=== PATIENT | male | born 1950 | race Caucasian/White ===

== ENCOUNTER 2018-01-06 17:35 | Inpatient (IN) | payer MEDICARE ==
[~2018-01-06] VITALS: Ht 172.7 cm; Wt 144.2 kg
[2018-01-06] VITALS (12 sets, daily range): BP systolic 52–115; BP diastolic 29–70
[~2018-01-06 17:35] MED LIST: ALLOPURINOL 30300 M2 PO; ASPIR 8181 MG PO; IMDUR 30 MG TAB30 M1 PO; LIPITOR 20 MG T20 M1 PO; METFORMIN HCL500 MG PO; NEXIUM40 MG PO; NITROGLYCERIN0.4 MG SUBLING; VASOTEC10 MG PO; ZIAC 2.5-6.251 EACH PO
[2018-01-06] MEDS ORDERED: PLAVIX 75 MG TA75 M1 PO (18:00)
[2018-01-06] MEDS ORDERED: OSTEO BI-FLEX1 EAC1 PO (18:00)
[2018-01-06] MEDS ORDERED: SUPER B COMPLE150 MG PO (18:00)
[2018-01-06 18:15] LABS: HEMATOCRIT 47.4 % (42.0-52.0); HEMOGLOBIN 15.8 gm/dL (14.0-18.0); MCH 30.8 pg (26.0-34.0); MCHC 33.3 g/dL (28.0-37.0); MCV 92.5 fL (80.0-100.0); MPV 11.5 fl. (7.2-11.1); NUCLEATED RBCS 0 /100WBC; PLATELET COUNT* 279 thou/uL (150-400); RBC 5.12 mil/uL (4.50-6.00); RDW-CV 14.2 % (10.5-14.5); WBC 12.8 thou/uL (4.0-11.0)
[2018-01-06 18:24] LABS: APTT 22.3 Seconds (25.0-31.3); INR 1.2
[2018-01-06 18:25] LABS: BUN 54 mg/dL (7-18); CALCIUM 8.2 mg/dL (8.5-10.1); CHLORIDE 83 mmol/L (98-107); CO2 22 mmol/L (21-32); CREATININE 3.4 mg/dL (0.6-1.3); POTASSIUM 5.1 mmol/L (3.5-5.1)
[2018-01-06 18:34] LABS: ALBUMIN 3.2 g/dL (3.4-5.0); ALKALINE PHOSPHATASE 88 U/L (46-116); NT-PRO BRAIN NAT PEPTIDE 2041 pg/mL (<300); SGOT 41 U/L (15-37); SGPT 75 U/L (30-65); TOTAL BILIRUBIN 1.4 mg/dL (<0.1-1.0); TOTAL PROTEIN 6.9 g/dL (6.4-8.2); TROPONIN-I LEVEL <0.06 ng/mL (<0.06)
[2018-01-06 18:37] LABS: ANION GAP 13 mmol/L (7-16)
[2018-01-06 18:38] LABS: GLUCOSE 834 mg/dL (70-99); SODIUM 118 mmol/L (136-145)
[2018-01-06 18:50] LABS: ABSOLUTE MONOCYTES 0.6 thou/uL (0.0-1.2); ABSOLUTE NEUTROPHILS 11.1 thou/uL (1.6-8.1)
[2018-01-06 18:51] LABS: PLATELET ESTIMATE ADEQUATE
[2018-01-06 18:52] LABS: CLUMPED PLTS RARE; LARGE PLATELETS OCCASIONAL
--- NOTE | 2018-01-06 20:38 | NUR ---
PT IS 67 Y/O MALE ADMITTED TO ICU BED 2 FOR LACTIC ACIDOSIS, HYPOTENSION, AND HYPERGLYCEMIA. PT IS AXOX4. ROOM AIR. PT DENIES PAIN. MAP STABLE UPON ARRIVAL TO ICU. ADMISSION HX OBTAINED FROM PT WELL PT'S DAUGHTER AND SON. PT STATES HE HAS NOT BEEN FEELING WELL FOR THE PAST 2 WEEKS. PT C/O NAUSEA, VOMITING, AND DIARRHEA OVER THE LAST TWO WEEKS. PT ORIENTED TO ROOM. FLUIDS (BOTH NS AND D5NS) INFUSING PER CONTINUOUS INSULIN PROTOCOL. INSULIN GTT STARTED AFTER ARRIVAL TO ICU. GOALS THIS SHIFT: HYDRATION W/FLUIDS, DECREASE BLOOD GLUCOSE LEVELS, MONITOR LABS/URINE OUTPUT, AND MAINTAIN HEMODYNAMIC STABILITY (KEEP MAP >65). PT UPDATED ON PLAN OF CARE T/OUT NIGHT.
[2018-01-06 21:11] LABS: BE -7.4 mmol/L (-2 to +3); HCO3 16.1 mmol/L (22.0-26.0); PCO2 28.1 mmHg (35.0-45.0); PO2 71.7 mmHg (75.0-100.0); pH 7.375 (7.340-7.450)
--- NOTE | 2018-01-06 22:47 | NUR ---
CARDIOLOGY CONSULT CALLED IN. CONSULT WILL BE PAGED OVER AT 4030 TOMORROW.
--- NOTE | 2018-01-06 23:30 | NUR ---
PT BOLUSED W/SODIUM CHLORIDE AT THIS TIME D/T HYPOTENSION. AWAITING CENTRAL LINE PLACEMENT.
--- NOTE | 2018-01-06 23:30 | NUR ---
PT HYPOTENSIVE W/SBP IN THE 50'S-60'S. CENTRAL LINE PLACED. LEVO GTT ORDERED TO KEEP MAP >65.
--- NOTE | 2018-01-06 23:49 | NUR ---
UPDATED PT'S DAUGHTER ON PT STATUS.
--- NOTE | 2018-01-06 23:59 | NUR ---
DR. NOLAN HERE FOR CENTRAL LINE PLACEMENT. TIME OUT CALLED. PT NOW HAS CENTRAL LINE TO LEFT SUBCLAVIAN.
[2018-01-07] VITALS (37 sets, daily range): BP systolic 78–182; BP diastolic 42–148
--- NOTE | 2018-01-07 01:00 | NUR ---
PT HAS RESPONDED TO NS BOLUS. MAP HAS STAYED NEAR OR ABOVE 65. QUAD STRENGTH LEVO GTT AVAILABLE IF NEEDED.
--- NOTE | 2018-01-07 02:05 | NUR ---
PT W/MULTIPLE MAPS IN THE MID 50'S TO UPPER 50'S. ANTONINO GTT STARTED AT 4 MCG/MIN. PT INFORMED OF PLAN OF CARE.
[2018-01-07 03:18] LABS: URINE BLOOD 3+ (Negative); URINE CLARITY CLEAR; URINE COLOR YELLOW; URINE GLUCOSE-RANDOM NEGATIVE (Negative); URINE KETONES NEGATIVE (Negative); URINE LEUKOCYTES-REFLEX 1+ (Negative); URINE NITRITE-REFLEX NEGATIVE (Negative); URINE PROTEIN 2+ (Negative); URINE SPECIFIC GRAVITY 1.025 (1.005-1.030); URINE UROBILINOGEN 0.2 E.U./dl (0.2-1.0)
[2018-01-07 03:22] LABS: URINE BILIRUBIN 1+ (Negative)
[2018-01-07 03:23] LABS: ICTOTEST (BILI CONFIRMATORY) Negative (Negative)
[2018-01-07 03:24] LABS: HYALINE CASTS 4-10 Moderate /LPF (None Seen); SQUAMOUS 0-3 Few /LPF (0-3)
[2018-01-07 03:25] LABS: COARSE GRANULAR CASTS 0-3 Few /LPF (None Seen)
[2018-01-07 03:26] LABS: URINE WBC-REFLEX >25 Many /HPF (0-5)
[2018-01-07 03:27] LABS: CRYSTALS None Seen /LPF (None Seen); WBC CLUMPS Few (None Seen)
--- NOTE | 2018-01-07 04:00 | NUR ---
AFTER 0400 ASSESSMENT, PT STATES HE WISHES TO SLEEP. REQUEST GRANTED. REMAINS ON LEVO AND INSULIN (REGULAR) GTTS. BLOOD GLUCOSE TRENDING DOWNWARD NICELY.
--- NOTE | 2018-01-07 05:42 | NUR ---
UPDATED DR. WILSON ON PT STATUS. NEW ORDERS RCV'D.
--- NOTE | 2018-01-07 06:15 | NUR ---
OUTCOME SUMMARY: PT PROGRESSING TOWARDS GOALS. TITRATED OFF INSULIN GTT. NOW ON MODERATE DOSE SLIDING SCALE INSULIN. ADVANCED DIET TO ADA FROM CL. LEVO GTT CURRENTLY AT 2 MCG/MIN. ADEQUATE URINE OUTPUT. STARTED ON ROCEPHIN FOR UTI. C+S PENDING. BUN/CR TRENDING DOWNWARD. NA TRENDING UP AND NORMALIZING. K AT 3.1 AND TO BE REPLACED. CARDIOLOGY CONSULT THIS AM. OVERALL PROGNOSIS: FAIR.
[2018-01-07 08:23] LABS: CHOLESTEROL 111 mg/dL (<200); HDL CHOLESTEROL 25 mg/dL (>40); LDL CHOLESTEROL 35 mg/dL (<100); TC:HDL 4.4 Ratio (Not establshd); TRIGLYCERIDE 259 mg/dL (<150); VLDL 52 mg/dL (<40)
[2018-01-07 08:25] LABS: SERUM ASSESSMENT Clear
--- NOTE | 2018-01-07 08:28 | NUR ---
ASSUMED CARE OF PATIENT ALERT DENIES CP OR SOA. UNDERSTANDS HE WILL NEED LIFESTYLE CHANGE. PLAN TO BE OUT OF BED AND UP IM ROOM.WILL MONITOR BLOOD GLUCOSE IN ATTEMPT TO TRANSFER TO FLOOR. PT TAKING PO WELL.
--- NOTE | 2018-01-07 10:57 | NUR ---
Nutrition: consult received for DM diet education. Pt is still on ICU floor for rehydration. Pt has low BP, decreased renal FXN. New DM, will go home on insulin. BG was >600, now 190. TG 259, alb 2.6, BUN 44, cr 2.4. Wt: 303#. CHO controlled diet. Eating 100%. Getting echo at 10:[address] will educate when pt off of ICU floor. Follow up 01/09/18.
--- NOTE | 2018-01-07 13:37 | NUR ---
SPOKE WITH PT.AND HIS DAUGHGTERDANILO. HE WAS ALERT AND ORIENTED. HE SAID HIS SON,DARLIN,LIVES WITH HIM. DARLIN WILL NORMALLY DO THE COOKING. HE SAID THEY SELDOM GO OUT TO EAT. HE IS INDEPENDENT AT HOME. NO DME AT HOME. HE DOES HAVE A CPAP BUT HASN'T USED IT FOR ABOUT 20 YRS. HE'S NOT EVEN SURE IT WORKS.HE CAN'T REMEMBER NAME OF COMPANY IT CAME FROM. HE SAID THE MASK NEVER WORKED RIGHT. TOLD HIM IF WANTED HIM TO HAVE A NEW CPAP WE COULD SEE ABOUT GETTING HIM A NEW ONE. HE DOES HAVE A GLUCOMETER. HE GOT IT A COUPLE MONTHS AGO. HE HASN'T USED IT YET. HE SAID THE DRJeannetteAT THAT TIME TOLD HIM HE MIGHT BE [facility]. ASKED DAUGHTER TO BRING METER IN OR ASK DARLIN TO BRING IT IN SO WE CAN SHOW HIM HOW TO USE AND MAKE SURE IT IS ACCURATE. SHE SAID SHE WOULD. TOLD PT. THE JAVA INTEGRATION DEVELOPER WOULD BE SEEING HIM WHILE HE IS HERE. HE WOULD LIKE TO CHANGE HIS DR. GAVE HIM LIST OF [facility], 3 DRS.IN [place] WHERE HE LIVES-(FOUND ON MEDICARE.GOV.) AND INFORMATION ON MEDICINE CABINET. HE SAID HE DOES NOT HAVE ANY PRESCIPTION DRUG COVERAGE OR SECONDARY INSURANCE. TOLD HIM OPEN ENROLLMENT IS COMING UP AND HE CAN SIGN UP FOR THESE AT THAT TIME. CM WILL FOLLOW FOR DISCHARGE.
--- NOTE | 2018-01-07 13:46 | NUR ---
PATIENT UP IN CHAIR CO DIZZINESS EARLIER BACK TO BED LEVO RESTARTED. PATIENT UP AGAIN BATH DONE TEETH BRUSHED. GIVEN IS FOR SLIGHT WHEEZE COUGHED and cleared.
--- NOTE | 2018-01-07 15:25 | 2DMMODE ---
[place] [address] 2 D/M-MODE ECHOCARDIOGRAM Name: OVIDIO MONTERO Room: 002P [facility] IN [facility]#: [id number] Admission: 01/06/18 Attend Phys: Leon Cortez, Discharge: Date of : 54 Date of Service: 01/07/18 1525 Report #: [id number] THIS REPORT FOR: //name// APPROVED REPORT Study performed: 01/07/2018 10:08:04 EXAM: Comprehensive 2D, Doppler, and color-flow Echocardiogram Patient Location: In-Patient Room #: 002 Status: routine BSA: 2.44 HR: 104 bpm BP: 80/45 mmHg Rhythm: Atrial Flutter Other Information Study Quality: Good Indications CAD Chest Pain 2D Dimensions IVSd: 13.39 (7-11mm) LVOT Diam: 23.56 (18-24mm) LVDd: 28.14 mm PWd: 11.97 (7-11mm) Ascending Ao: 34.80 (22-36mm) LVDs: 18.58 (25-40mm) Aortic Root: 32.95 mm Volumes Left Atrial Volume (Systole) LA ESV Index: 15.80 mL/m2 Aortic Valve AoV Peak Sean.: 1.38 m/s AO Peak Gr.: 7.60 mmHg LVOT Max P.99 mmHg AO Mean Gr.: 5.06 mmHg LVOT Mean P.41 mmHg LVOT Max V: 1.32 m/s AO V2 VTI: 22.81 cm LVOT Mean V: 0.84 m/s LUMA (VTI): 4.08 cm2 LVOT V1 VTI: 21.37 cm Mitral Valve MV Decel. Time: 181.10 ms MV PHT: 52.52 [place] [address] 2 D/M-MODE ECHOCARDIOGRAM Name: OVIDIO MONTERO Room: [address] IN ..#: [id number] Admission: 01/06/18 Attend Phys: Leon Cortez, Discharge: Date of : 54 Date of Service: 01/07/18 1525 Report #: [id number] MVA (PHT): 4.19 cm2 TDI Medial E' Sean.: 0.15 m/s Lateral E' Sean.: 0.12 m/s Pulmonary Valve PV Peak Sean.: 1.16 m/s PV Peak Gr.: 5.34 mmHg Left Ventricle The left ventricle is normal size. There is normal LV segmental wall motion. There is normal left ventricular wall thickness. Left ventricular systolic function is normal. The left ventricular ejection fraction is within the normal range. LVEF is 55-60%. This study is not technically sufficient to allow evaluation of the LV diastolic function due to atrial fibrillation. Right Ventricle The right ventricle is normal size. The right ventricular systolic function is normal. Atria The left atrium size is normal. The right atrium size is normal. Aortic Valve The aortic valve is normal in structure. No aortic regurgitation is present. There is no aortic valvular stenosis. Mitral Valve The mitral valve is normal in structure. There is no mitral valve regurgitation noted. No evidence of mitral valve stenosis. Tricuspid Valve The tricuspid valve is normal in structure. Unable to assess PA pressure. Trace tricuspid regurgitation. Pulmonic Valve The pulmonary valve is normal in structure. There is no pulmonic valvular regurgitation. Great Vessels The aortic root is normal in size. IVC is normal in size and collapses >50% with inspiration[place] [address] 2 D/M-MODE ECHOCARDIOGRAM Name: OVIDIO MONTERO Room: [address] IN [facility]#: [id number] Admission: 01/06/18 Attend Phys: Leon Cortez, Discharge: Date of : 54 Date of Service: 01/07/18 1525 Report #: [id number] There is no pericardial effusion. <Conclusion> The left ventricle is normal size. There is normal left ventricular wall thickness. Left ventricular systolic function is normal. The left ventricular ejection fraction is within the normal range. LVEF is 55-60%. This study is not technically sufficient to allow evaluation of the LV diastolic function due to atrial fibrillation. The right ventricle is normal size. The left atrium size is normal. The aortic valve is normal in structure. The mitral valve is normal in structure. The tricuspid valve is normal in structure. IVC is normal in size and collapses >50% with inspiration. There is no pericardial effusion. There is normal LV segmental wall motion. <ELECTRONICALLY SIGNED> By: Giancarlo Pennington MD, FACC 01/07/18 1525 1525 1525 Giancarlo Pennington MD, FACC /INF
--- NOTE | 2018-01-07 16:13 | EKG ---
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 : 1950 Requested By: Harmeet Rodriguez Order Number: [id number] MD: Giancarlo Pennington Measurements Intervals [place] Rate: 83 P: 249 VA: 249 QRS: 47 QRSD: 122 T: 65 QT: 461 QTc: 542 Interpretive Statements Atrial flutter with variable block Nonspecific intraventricular conduction delay Inferior infarct, age indeterminate possible Compared to ECG 10/02/2015 09:03:51 Intraventricular conduction delay now present Myocardial infarct finding still present Electronically Signed On 01-07-2018 16:12:48 CDT by Giancarlo Pennington [email or web address] <ELECTRONICALLY SIGNED> By: Giancarlo Pennington MD, FAC 01/07/18 1612 31 31 Giancarlo Pennington MD, [facility] /EPI
--- NOTE | 2018-01-07 16:15 | EKG ---
[place] [address] ELECTROCARDIOGRAM REPORT Name: OVIDIO MONTERO Room: [address] ADM IN M.R.#: [id number] Admission: 01/06/18 Attend Phys: Leon Cortez MD Discharge: Date of : 54 Report #: [id number] THIS REPORT FOR: //name// 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 : 1950 Requested By: Leon Cortez Order Number: [id number] Reading MD: Giancarlo Pennington Measurements Intervals [place] Rate: 108 P: [place]: QRS: 43 QRSD: 95 T: 137 QT: 386 QTc: 518 Interpretive Statements Atrial fib-flutter Abnormal T, consider ischemia, diffuse leads Compared to ECG 10/02/2015 09:03:51 T-wave abnormality now present Possible ischemia now present Myocardial infarct finding still present Electronically Signed On 01-07-2018 16:15:02 CDT by Giancarlo Pennington [email or web address] <ELECTRONICALLY SIGNED> By: Giancarlo Pennington MD, FACC 01/07/18 1615 [id number] [id number] Giancarlo Pennington MD, [facility] /EPI
--- NOTE | 2018-01-07 18:21 | NUR ---
PATIENT TAKING PO WELL INCREASED SS TO HIGH DOSE. UP IN CHAIR FOR MEAL. DENIES SOA OR PAIN REMAINS ON LEVO AT 3MCG.
[2018-01-08] VITALS (22 sets, daily range): BP systolic 93–156; BP diastolic 47–97
[2018-01-08 04:39] LABS: HEMATOCRIT 36.2 % (42.0-52.0); HEMOGLOBIN 12.5 gm/dL (14.0-18.0); MCH 31.2 pg (26.0-34.0); MCHC 34.5 g/dL (28.0-37.0); MCV 90.3 fL (80.0-100.0); MPV 10.9 fl. (7.2-11.1); RBC 4.01 mil/uL (4.50-6.00); RDW-CV 14.3 % (10.5-14.5); WBC 7.7 thou/uL (4.0-11.0)
[2018-01-08 05:32] LABS: CALCIUM 7.3 mg/dL (8.5-10.1); CREATININE 1.8 mg/dL (0.6-1.3); POTASSIUM 3.4 mmol/L (3.5-5.1)
--- NOTE | 2018-01-08 07:22 | NUR ---
Pt reports pain to R foot, ankle, and knee. When up to [facility] last night, pt c/o weakness to R leg when putting weight on it. States he has tingling to both feet normally, and also has gout which typically affects the toes on the R foot; but pain and weakness to R ankle and knee is new. After pt assisted back to bed from [facility], pt exercised his legs by "wiggling" his R foot and doing leg lifts. States leg felt better afterwards. Pt in afib per monitor. BP has increased gradually overnight, from 90s/50s to 110s-120s/50s-70s. HR gradually increased as well, from 90s-100s to 110s-140s. Paged Dr. Hooper (transportation technician for cardiology), orders received to start diltiazem gtt. Rate now 90s-110s, BP stable. BG [address] Witt, received orders to check BG q4h for 12 hours and dose with high sliding scale, then resume ACHS timing. BG 180 at 0520. Pt reports he has sleep apnea, and has old CPAP at home that has accessories that no longer function. Early this am, pt desats to 70s-80s on RA. Placed O2 at 2L per NC, Pt then awoke and remains awake, and now back on RA. Will continue to monitor.
--- NOTE | 2018-01-08 11:57 | NUR ---
INTERDISCIPLINARY ROUNDS: PT.IN AFIB WITH RVR AND ON CARDIZEM DRIP. CARDIOLOGY FEELS POSSIBLY DUE TO SEPSIS. AWAITING CULTURES. CM WILL NEED ORDER TO OBTAIN NEW CPAP AT DISCHARGE. CM WILL CONTACT [facility] TO HAVE THEM SEE IF PT.WOULD QUALIFY FOR MEDICAID HIS SECONDARY INSURANCE.
--- NOTE | 2018-01-08 12:25 | NUR ---
8071 ASSUMED CARE OF PATIENT. PLEASE SEE DOCUMENTED ASSESSMENT. DR BOLDEN TO SEE PATIENT. PT WILL NOW BE TELE STATUS. SCD'S NOT ON DUE TO PT C/O PAIN IN R LEG. DR BOLDEN AWARE
--- NOTE | 2018-01-08 16:23 | NUR ---
PATIENT PROGRESSING TOWARDS GOALS. NOW TELE STATUS. OFF OF IVF AND CARDIZEM DRIP. TAKES ORAL CARDIZEM. HAS BEEN OUT OF BED.ENCOURAGED IS. SUGARS ARE POORLY CONTROLLED. REFERRED TO CASE MANAGEMENT FOR FINDING PCP AND DISCHARGE PLANNING. FAMILY HAS VISITED
[2018-01-09] VITALS (10 sets, daily range): BP systolic 118–145; BP diastolic 50–102
[2018-01-09 05:21] LABS: CALCIUM 8.1 mg/dL (8.5-10.1); CREATININE 1.5 mg/dL (0.6-1.3); MAGNESIUM 1.9 mg/dL (1.8-2.4); POTASSIUM 4.1 mmol/L (3.5-5.1)
--- NOTE | 2018-01-09 07:52 | NUR ---
Pt pleasant and cooperative. Up to side of bed ad keenan to use urinal. Voiding without difficulty, and maintaining good po intake and adequate urine output. States R leg feeling better as far as pain; however, states he still feels like his leg is not providing adequate support when standing on it. Reports he feels like it might "give out, though it hasn't." VSS. HR 80's to 100s at rest, but up to 140s with activity. On 2L O2 per NC overnight d/t sleep apnea, and pt desated overnight the previous night. Will likely transfer out to Tele unit today. Will continue to monitor.
--- NOTE | 2018-01-09 10:45 | NUR ---
DRILLER OPERATOR IN WITH PT NOW DOING TEACHING. NURSING TO CHECK IF FAMILY BROUGHT IN PT'S GLUCOSE METER FROM HOME. NURSING TO PROVIDE DIABETIC TEACHING TO PT. CASE MGT WILL CONTINUE TO FOLLOW.
--- NOTE | 2018-01-09 17:42 | NUR ---
RECEIVED REPORT FROM SHY CONROY. ASSESSMENT CHARTED. AFEBRILE. VITAL SIGNS STABLE. ADEQUATE URINE OUTPUT. MEDS GIVEN. DIABETES EDUCATION GIVEN. REPORT GIVEN TO SHY MORALES. ALL QUESTIONS ANSWERED. PT TRANSFERRED TO RM 318 AROUND 1700 VIA WHEELCHAIR WITH BELONGINGS.
--- NOTE | 2018-01-09 17:54 | NUR ---
PATIENT TRANSFERRED FROM ICU TO ROOM 318. REPORT RECEIVED FROM SHY WAY. NO COMPLAINTS AT THIS TIME. UP TO CHAIR. REAL ESTATE LEGAL ASSISTANT IN PLACE. IV SL. CALL LIGHT WITHIN REACH, WILL CONTINUE TO MONITOR.
[2018-01-10] VITALS: BP 117/60
[2018-01-10 04:00] VITALS: BP 104/50
[2018-01-10 08:00] VITALS: BP 119/60
[2018-01-10 10:12] LABS: CALCIUM 8.1 mg/dL (8.5-10.1); CREATININE 1.3 mg/dL (0.6-1.3); MAGNESIUM 1.8 mg/dL (1.8-2.4); POTASSIUM 3.7 mmol/L (3.5-5.1)
[2018-01-10 10:22] VITALS: BP 119/60
[2018-01-10 12:04] LABS: URINE BILIRUBIN NEGATIVE (Negative); URINE BLOOD NEGATIVE (Negative); URINE CLARITY CLEAR; URINE COLOR YELLOW; URINE GLUCOSE-RANDOM 3+ (Negative); URINE KETONES NEGATIVE (Negative); URINE LEUKOCYTES-REFLEX NEGATIVE (Negative); URINE NITRITE-REFLEX NEGATIVE (Negative); URINE PROTEIN NEGATIVE (Negative); URINE UROBILINOGEN 0.2 E.U./dl (0.2-1.0)
[2018-01-10 12:30] VITALS: BP 125/67
[2018-01-10 16:15] VITALS: BP 123/60
--- NOTE | 2018-01-10 19:04 | NUR ---
PATIENT HAS BEEN A/O X 4 THIS SHIFT. HAS DENIED PAIN OR SHORTNESS OF AIR. PATIENT'S LEFT SUBCLAVIAN LEAKING, ORDERS NOTED TO REMOVE AND START PERIPHERAL IV, STARTED TO LEFT FOREARM. CONTINUES ON IV ANTIBIOTICS. DIABETIC EDUCATION STARED THIS AFTERNOON WITH PATIENT AND PATIENT'S SON. PATIENT DEMONSTRATED TO THIS NURSE HOW TO TAKE BLOOD SUGAR AT DINNER. BLOOD SUGARS COVERED WITH SS INSULIN, SCHEDULED LANTUS AND ORAL ANTIDIABETIC AGENTS. PATIENT'S BLOOD GLUCOSE METER REVIEWED WITH PATIENT AND SON, TEST STRIPS AND LANCETS . EXPLAINED TO PATIENT TO DISCUSS WITH PHYSICIAN. RAS'S SON BROUGHT IN HOME CPAP, CM WORKING WITH PATIENT REGARDING DC PLANS. PT/OT ORDERED. PATIENT SHOWERED THIS SHIFT. HAD US OF RIGHT LOWER LEG, NEGATIVE FOR BLOOD CLOT. PATIENT REMAINS ON HR ADMINISTRATOR, TRACING A FLUTTER, RATE CONTROLLED. PATIENT UP TO CHAIR FOR PART OF SHIFT. HOURLY ROUNDING COMPLETED. CALL LIGHT WITHIN REACH. WILL CONTINUE WITH PLAN OF CARE.
[2018-01-11] VITALS: BP 120/66
[2018-01-11 04:00] VITALS: BP 112/62
[2018-01-11 04:29] LABS: HEMATOCRIT 34.8 % (42.0-52.0); HEMOGLOBIN 11.9 gm/dL (14.0-18.0); MCH 31.2 pg (26.0-34.0); MCHC 34.2 g/dL (28.0-37.0); MCV 91.3 fL (80.0-100.0); MPV 10.6 fl. (7.2-11.1); RBC 3.81 mil/uL (4.50-6.00); RDW-CV 14.5 % (10.5-14.5); WBC 7.3 thou/uL (4.0-11.0)
[2018-01-11 04:46] LABS: CREATININE 1.2 mg/dL (0.6-1.3); POTASSIUM 3.7 mmol/L (3.5-5.1)
--- NOTE | 2018-01-11 06:17 | NUR ---
PT SLEPT MOST OF SHIFT. ASSESSMENT DOCUMENTED. MEDS GIVEN PER E-MAR. IV PATIENT. NO REPORTS OF PAIN OR NAUSEA. PT EDUCATED ON HOW TO CHECK BLOOD SUGARS AND GIVE INSULIN SHOTS TO SELF THIS SHIFT. PT RECEPTIVE OF TEACHING. PATIENT STATED THAT HIS SON IS GOING TO START COOKING HIS FOOD FOR HIM AT HOME. PT VOIDED PER URINAL THIS SHIFT. WILL CONTINUE WITH PLAN OF CARE.
[2018-01-11 07:50] VITALS: BP 122/53
[2018-01-11 12:30] VITALS: BP 115/57
[2018-01-11 15:45] VITALS: BP 96/52
--- NOTE | 2018-01-11 16:32 | NUR ---
LAYOUT WORKER SPOKE TO PATIENT TO DISCUSS DISCHARGE PLANNING NEEDS. PATIENT INFORMS THAT HIS ONLY CONCERN IS WITH NEEDING CPAP AT D/C. INFORMED PATIENT THAT HE WOULD NEED A SLEEP STUDY TO RECIEVE A NEW CPAP. CM WILL REMAIN AVAILABLE TO ASSIST AND FOLLOW NEEDED.
--- NOTE | 2018-01-11 19:38 | NUR ---
PATIENT HAS BEEN A/O X 4 THIS SHIFT. CONTINUES ON STRAIGHT KNIFE CUTTER MACHINE, TRACING A FLUTTER, RATE CONTROLLED. PATIENT DENIES PAIN OR SHORTNESS OF AIR. SALINE LOCK PATENT AND ANTIBIOTICS INFUSED. PATIENT UP WITH SBA AND WALKER THIS SHIFT. PARTICIPATED IN PHYSICAL THERAPY. PATIENT HAS BEEN TAKING OWN BLOOD SUGARS THIS SHIFT, ANXIOUS ABOUT HAVING TO GIVE HIMSELF INSULIN, STILL HAVING NURSE GIVE INSULIN THIS SHIFT. PATIENT'S APPETITE GOOD. PATIENT HOPEFUL TO BE DISCHARGED SOON. HOURLY ROUNDING COMPLETED. CALL LIGHT WITHIN REACH. WILL CONTINUE WITH PLAN OF CARE.
[2018-01-12] VITALS: BP 136/57
[2018-01-12 04:00] VITALS: BP 113/57
[2018-01-12 04:30] LABS: HEMATOCRIT 36.9 % (42.0-52.0); HEMOGLOBIN 12.3 gm/dL (14.0-18.0); MCH 31.1 pg (26.0-34.0); MCHC 33.4 g/dL (28.0-37.0); MCV 93.1 fL (80.0-100.0); MPV 10.7 fl. (7.2-11.1); RBC 3.96 mil/uL (4.50-6.00); RDW-CV 14.6 % (10.5-14.5); WBC 7.3 thou/uL (4.0-11.0)
[2018-01-12 04:53] LABS: ALBUMIN 2.4 g/dL (3.4-5.0); CALCIUM 8.4 mg/dL (8.5-10.1); CREATININE 1.2 mg/dL (0.6-1.3); MAGNESIUM 1.9 mg/dL (1.8-2.4); POTASSIUM 4.1 mmol/L (3.5-5.1); TOTAL BILIRUBIN 0.6 mg/dL (<0.1-1.0); TOTAL PROTEIN 5.7 g/dL (6.4-8.2)
--- NOTE | 2018-01-12 05:13 | NUR ---
ALERT AND ORIENTED X4. UP WITH 1 ASSIST AND WALKER. PATIENT WAS ABLE TO GIVE HIS OWN INSULIN WITHOUT DIFFICULTY. DENIED NEED FOR PAIN MEDICATIONS. REMAINS ON HEART MONITOR IN A FLUTTER. CALL LIGHT WITHIN REACH. PROGRESSING TOWARD DISCHARGE GOAL.
[2018-01-12 09:15] VITALS: BP 100/56
[2018-01-12 13:12] VITALS: BP 99/60
[2018-01-12] MEDS ORDERED: CARDIZEM CD240 MG PO (14:13)
[2018-01-12] MEDS ORDERED: LANTUS100 UNIT/M SUBQ ×2 (14:14→14:15)
[2018-01-12] MEDS ORDERED: ELIQUIS5 MG PO (14:14)
[2018-01-12] MEDS ORDERED: ATENOLOL 25 MG25 M1 PO (14:15)
[2018-01-12] MEDS ORDERED: GLUCOTROL5 MG PO (14:16)
[2018-01-12] MEDS ORDERED: GABAPENTIN 100100 MG PO (14:16)
[2018-01-12] MEDS ORDERED: KEFLEX500 M2 PO (14:17)
[2018-01-12 14:30] VITALS: BP 119/60
--- NOTE | 2018-01-12 14:37 | NUR ---
Pt discharging to home today. Cm received call from nurse, Pt requesting a walker at de. Per PT, Pt could benefit from a walker. CM went to discuss with Pt, Pt informed that his dtr just went to [place] to try and find him a walker. CM asked if Pt would prefer having a new one, paid for by his insurance, Pt stated "no, I will just wait and see what my daughter can find." CM updated nurse. Pt informed CM that someone had told him that he could have a new glucameter at de, CM updated nurse, nurse will provide/house sup to provide. Nurse phoned scripts into [facility] in [place]. Son will provide dc transportation.
--- NOTE | 2018-01-12 16:35 | NUR ---
PATIENT UP IN CHAIR MOST OF SHIFT. IV ABX INFUSED THIS AM. UP TO BATHROOM UTILIZING WALKER. CM NOTIFIED THAT PATIENT NEEDING ASSISTANCE FOR WALKER, PATIENT THEN REFUSED AFTER SPEAKING WITH CM AND STATED DAUGHTER WAS GOING TO GET PATIENT ONE. GLUCOMETER GIVEN AND INSTRUCTED TO TAKE INTO [facility] TO ASSIST WITH TEST STRIPS. IV DC'D. ALL SCRIPTS CALLED INTO [facility] PER PATIENT REQUEST. PATIENT VERBALIZED UNDERSTANDING OF PAPERWORK AND NEW MEDICATIONS AND DISCONTINUED MEDS. PATIENT TAKEN OUT VIA WHEELCHAIR WITH ALL BELONGINGS BY NURSING STAFF.
--- NOTE | 2018-02-18 09:57 | PROC ---
[facility] [address] [place] [address] PROCEDURE REPORT Name: OVIDIO MONTERO Room: [address] IN M.R.#: [id number] Admission: 01/06/18 Attend Phys: Leon Cortez MD Discharge: 01/12/18 Date of : 54 Report #: [id number] THIS REPORT FOR: //name// CC: HIMANSHU Cortez DATE OF SERVICE: 01/07/2018 PREPROCEDURE DIAGNOSIS: Septic shock. POSTPROCEDURE DIAGNOSIS: Septic shock. OPERATIVE PROCEDURE: Left subclavian triple-lumen catheter. ANESTHESIA: Lidocaine 1%. DESCRIPTION OF PROCEDURE: The patient was in a supine position, in slight Trendelenburg and the left subclavicular area was prepped and draped in a sterile fashion. Infiltration in the infraclavicular space followed by needle passage with aspiration into the subclavian vein was accomplished. The syringe was removed and a guidewire was passed down the needle and the needle was retracted. I then made a small stab incision over the wire, placed a dilator over the wire and then threaded the triple-lumen catheter to 15 cm, pulling the wire out. I then aspirated all 3 ports and flushed with saline, secured at the skin with a 3-0 nylon and a protective dressing was placed. X-ray showed no pneumothorax, in stable condition. <ELECTRONICALLY SIGNED> By: Lucy Ayala MD 02/18/18 0957 1330 0110Keldasha Ayala MD /nt
== END 2018-01-12 16:30 | disposition home or self-care (01) | DRG 871 ==
LOC: M.ERS 17:35 → M.TBA-ER 19:57 → M.ICU 19:57 → M.3W 01-09 17:32
PROVIDERS: Emergency Medicine Emergency Medical Services; Family Medicine; Internal Medicine; Personal Emergency Response Attendant
PROC: 05H633Z Insertion of Infusion Device into Left Subclavian Vein, Percutaneous Approach (ICD-10-PCS; principal; 2018-01-07)
DX: A41.9 Sepsis, unspecified organism (principal); R65.21 Severe sepsis with septic shock; N17.9 Acute kidney failure, unspecified; N39.0 Urinary tract infection, site not specified; E44.0 Moderate protein-calorie malnutrition; I48.92 Unspecified atrial flutter; Z68.42 Body mass index [BMI] 45.0-49.9, adult; E86.0 Dehydration; E66.01 Morbid (severe) obesity due to excess calories; I25.10 Atherosclerotic heart disease of native coronary artery without angina pectoris; I48.91 Unspecified atrial fibrillation; E11.65 Type 2 diabetes mellitus with hyperglycemia; M71.21 Synovial cyst of popliteal space [Baker], right knee; R07.89 Other chest pain; K46.9 Unspecified abdominal hernia without obstruction or gangrene; E78.5 Hyperlipidemia, unspecified; I10 Essential (primary) hypertension; Z79.84 Long term (current) use of oral hypoglycemic drugs; Z79.82 Long term (current) use of aspirin; Z79.899 Other long term (current) drug therapy; Z88.0 Allergy status to penicillin; Z91.012 Allergy to eggs; Z91.011 Allergy to milk products; Z95.5 Presence of coronary angioplasty implant and graft; Z88.1 Allergy status to other antibiotic agents; Z87.891 Personal history of nicotine dependence

== ENCOUNTER → 2018-10-04 | Outpatient (CLI) | payer MEDICARE, OTHER ==
[~2018-10-04] MED LIST changes: +ATENOLOL 25 MG25 M1 PO; +CARDIZEM CD240 MG PO; +ELIQUIS5 MG PO; +GABAPENTIN 100100 MG PO; +GLUCOTROL5 MG PO; +IRON325 PO; +KEFLEX500 M2 PO; +LANTUS100 UNIT/M SUBQ; +OSTEO BI-FLEX1 EAC1 PO; +PLAVIX 75 MG TA75 M1 PO; +SUPER B COMPLE1 EAC2 PO
== END ==
LOC: M.CT 10:57
DX: R91.1 Solitary pulmonary nodule (principal); J90 Pleural effusion, not elsewhere classified

== ENCOUNTER → 2018-11-21 | Day surgery (SDC) | payer MEDICARE, OTHER ==
[~2018-11-21] MED LIST changes: +ALLER-EASE180 MG PO; +CENTRUM SILVER1 EAC4 PO; +KLOR-CON 1010 MEQ PO; +LASIX 20 MG TAB20 MG PO; +MIRALAX17 GM PO; +OXYCODONE HCL 55 MG PO; +ZANTAC 150MG T150 MG PO; +ZYLOPRIM300 MG PO
[2018-11-21 09:20] LABS: HEMATOCRIT 42.7 % (42.0-52.0); HEMOGLOBIN 14.1 gm/dL (14.0-18.0); MCH 30.4 pg (26.0-34.0); MCHC 33.1 g/dL (28.0-37.0); MPV 7.9 fl. (7.2-11.1); RBC 4.65 mil/uL (4.50-6.00); RDW-CV 16.3 % (10.5-14.5); WBC 8.9 thou/uL (4.0-11.0)
[2018-11-21 09:27] LABS: CALCIUM 8.8 mg/dL (8.5-10.1); CREATININE 1.5 mg/dL (0.6-1.3); POTASSIUM 4.2 mmol/L (3.5-5.1)
[2018-11-21 09:32] LABS: ALBUMIN 3.4 g/dL (3.4-5.0); TOTAL PROTEIN 7.5 g/dL (6.4-8.2)
--- NOTE | 2018-11-21 10:56 | EKG ---
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: : 1950 Requested By: Samantha Horan Order Number: [id number] Reading MD: Dwayne Oliveros Measurements Intervals [place] Rate: 59 P: -39 OH: 234 QRS: 13 QRSD: 93 T: 50 QT: 446 QTc: 442 Interpretive Statements Sinus rhythm Prolonged [place] interval Compared to ECG 05/31/2018 16:20:34 Ectopic atrial rhythm no longer present Electronically Signed On 11-21-2018 10:56:42 CDT by Dwayne Oliveros [email or web address] <ELECTRONICALLY SIGNED> By: Dwayne Oliveros MD, [facility] 11/21/18 1056 0958 0958 Dwayne Oliveros MD, FACC /EPI
--- NOTE | 2018-11-21 15:48 | OP ---
[address] [address] OPERATIVE REPORT Name: OVIDIO MONTERO Room: [facility]..#: [id number] Admission: 11/21/18 Attend Phys: Samantha Horan DO Discharge: Date of : 54 Report #: [id number] THIS REPORT FOR: //name// CC: Samantha [facility] DICTATED BY: Yakov Gonsales DO DATE OF SERVICE: 11/21/2018 PREOPERATIVE DIAGNOSIS: Incarcerated umbilical hernia. POSTOPERATIVE DIAGNOSIS: Incarcerated umbilical hernia. PRIMARY SURGEON: Samantha Horan DO TECHNICAL SERVICES ASSISTANT: Yusuf Florez DO, PGY4 and Yakov Gonsales DO, PGY3. OPERATION PERFORMED: Umbilical hernia repair with mesh. ANESTHESIA TYPE: General and local. ESTIMATED BLOOD LOSS: 30 mL. SPECIMEN REMOVED: Hernia sac. COMPLICATIONS: None. DISPOSITION: PACU to home. INDICATIONS FOR PROCEDURE: The patient is a pleasant 68-year-old male who presented to the office with chief complaint of large umbilical hernia. The patient was found to have a very large incarcerated umbilical hernia that caused him pain and discomfort, recommended umbilical hernia repair with mesh. Full discussion of procedure, alternatives, risks and possible complications discussed include but not limited to bleeding, infection, postoperative pain, scarring, injury to other underlying abdominal organs mainly bowel, hernia recurrence, need for further surgery, mesh complications and anesthesia risks. The patient voiced understanding of these risks and agreed to proceed with surgery. FINDINGS: Incarcerated umbilical hernia containing the majority of omentum. IMPLANTS: Large round Ventralex mesh. OPERATIVE TECHNIQUE: The patient was again [place] [address] OPERATIVE REPORT Name: OVIDIO MONTERO Room: [facility].#: [id number] Admission: 11/21/18 Attend Phys: Samantha Horan DO Discharge: Date of : 54 Report #: [id number] holding. Fully informed written consent was obtained. Preoperative antibiotics were given. The patient was subsequently transported to the operating room suite and placed on the operating room table in a supine position. At this time, anesthesia induced general anesthesia via endotracheal intubation and this was successful. SCDs were placed to bilateral lower extremity calves. Arms were out on arm boards. Grounding pad was placed to right lateral thigh. The patient was prepped and draped using standard sterile fashion. Time-out was performed prior to onset of procedure. We began by injecting 20 mL of 0.5% Marcaine around the umbilicus. Next, an elliptical incision was made around the large hernia to include the umbilicus. Using electrocautery and hemostats, the hernia sac was dissected out circumferentially and freed from the subcutaneous underlying tissues until the level of the fascia was reached. Once the fascial defect was located, the hernia sac was ligated around the fascial edge and the hernia sac was removed from the omentum that was contained within the hernia. Sac was passed off the back table to be sent for permanent pathology. The majority of the patient's omentum was contained within the hernia sac. A relaxing incision was made at the superior aspect of the fascial defect in order to be able to reduce the omentum back into the abdominal cavity. Once the omentum was reduced, finger sweep was performed. There were no adhesions; however, there was a large preperitoneal fat pad at the inferior border. Once this was performed, hernia defect was noted to be 4 x 3 cm. A large Ventralex round mesh was brought onto the field and placed into the abdomen. The mesh was placed intraperitoneally and sutured in place in four corners superior, inferior, left and right using 0 Prolene. Once this was performed, an additional 0 Prolene was placed between each of the already placed 0 Prolene sutures. One additional 0 Prolene was placed in the left lateral corner. There was noted to be no areas large enough to slip the finger or bowel to become incarcerated in. Next, the fascial defect was closed horizontally using 0 Prolene in a horizontal mattress sutures. Once the fascial defect was closed, they copiously irrigated and suctioned with normal saline. The subcutaneous tissue was undermined and a layered closure was then performed of the deep subcutaneous tissue using 3-0 interrupted Vicryl. Deep dermal layers were then closed using interrupted 3-0 Vicryls and the skin was closed using a subcuticular running 4-0 Monocryl. An additional 10 mL of 0.5% Marcaine was injected for local anesthetic. Abdomen was cleansed with wet and dry lap. Sterile dressing applied. Mastisol, Steri-Strips, 4 x 4's, Tegaderm, abdominal binder. The patient was extubated in the OR, transferred to PACU in stable condition after brief recovery from anesthesia. PLAN: Discharged home. Follow up in the office of Dr. Horan in 1 week. <ELECTRONICALLY SIGNED> By: Samantha Horan DO 11/21/18 1548 1213 1307Chgracy Horan DO /nt
--- NOTE | 2018-11-25 15:10 | PATH ---
[facility] [address] [place] [address] PATHOLOGY RPT PROCEDURE Name: OVIDIO SHAFER Room: [facility]..#: [id number] Admission: 11/21/18 Date of : 54 Discharge: Report #: [id number] Path Case #: [id number] [facility] Accession Number: [id number] . 01 Material submitted: . hernia - HERNIA SAC . 01 Clinical history: . Preop DX: Umbilcal hernia Postop DX: Incarcerated umbilical hernia . 02 Diagnosis: Hernia sac: - Benign skin with mild chronic inflammation and adherent, mesothelial-lined fibromembranous/fibrofatty tissue showing fibrosis. (KALIA:andrea 11/25/2018) QMS/11/25/2018 . 02 Electronically signed: . Bj Franco MD, Pathologist NPI- [id number] . 01 Gross description: . The specimen is received in formalin labeled "Ovidio Shafer, hernia sac". The post-op DX is listed on the requisition as "incarcerated umbilical hernia". Received is a segment of pale olivarez to dusky smith-olivarez, wrinkled fibromembranous tissue with attached wrinkled, pale olivarez skin and yellow, lobulated adipose tissue measuring 8.3 x 4.5 x 2.3 cm in greatest dimensions. The membrane surface opposite the skin surface is wrinkled and pale olivarez to dusky smith-olivarez and hemorrhagic in appearance, displaying linear patterns of pale olivarez "bumps" grossly resembling blood vessels. No lesions or nodules are noted grossly. Award Machine Operator sections are submitted in cassette A1, to representatively include the possible blood vessels. (DAC; 11/22/2018) XDC/XDC . 02 Pathologist provided ICD-10: K42.0 . 02 CPT . 079848 Specimen Comment: A courtesy copy of this report has been sent to Specimen Comment: [phone], . Specimen Comment: Report sent to / DR DIEHL Performed at: [address] [facility] [address], [place] [address] [place] [address] PATHOLOGY RPT PROCEDURE Name: WINSTONOVIDIO Room: [facility].#: [id number] Admission: 11/21/18 Date of : 54 Discharge: Report #: [id number] Path Case #: [id number] MD Harjeet Kovacs MD Phone: [phone] Performed at: 02 [facility] [address], [place], [place] [id number] MD Bj Franco MD Phone: [phone]
== END | disposition home or self-care (01) ==
LOC: M.SUR 06:59
PROVIDERS: Surgery
DX: K42.0 Umbilical hernia with obstruction, without gangrene (principal); Z98.890 Other specified postprocedural states; Z79.899 Other long term (current) drug therapy; Z88.0 Allergy status to penicillin; Z88.8 Allergy status to other drugs, medicaments and biological substances; Z79.01 Long term (current) use of anticoagulants

== ENCOUNTER → 2019-02-03 | Outpatient (CLI) | payer MEDICARE, OTHER ==
--- NOTE | 2019-02-12 17:36 | SLEEP ---
[address] [address] SLEEP STUDY REPORT Name: GASTONMARCIAClevelandOVIDIO TRIVEDI Room: [facility].#: [id number] Admission: 02/03/19 Attend Phys: Jodie Goldsmith Discharge: Date of : 54 Report #: [id number] THIS REPORT FOR: //name// CC: Nolberto Rhoades DO This study has been reviewed in its entirety by a board certified sleep specialist DATE OF SERVICE: 02/03/2019 SLEEP STUDY ATTENDING PHYSICIAN: Nolberto Rhoades DO The patient is a 68-year-old who weighs 312 pounds with a BMI of 47.4. The patient's Lesage score was 7. The patient underwent split night study performed at [facility]. During the night of the study, the patient spent 380 minutes in bed and slept for 215 minutes with a low sleep efficiency of 56%. Sleep latency was prolonged at 41 minutes with a REM latency of 184 minutes. Sleep architecture showed normal stage 1 and stage 2 sleep, increased slow wave sleep and normal REM sleep. During the initial diagnostic portion of the study, the patient slept for 42 minutes after spending 146 minutes in bed. During that time, the patient had 54 obstructive apneas, 1 mixed apnea, 3 central apneas and 12 hypopneas. The patient's apnea hypopnea index was 100 per hour. REM sleep was not seen during the diagnostic portion. Supine AHI was 96 per hour. EKG monitoring revealed an average heart rate of 60 beats per minute. No sustained arrhythmias observed. PLMS were seen at an index of 60 per hour and 28 per hour caused EEG arousals. However, the PLM index improved to only 1 per hour while the patient slept on CPAP. Nocturnal oximetry study during the diagnostic portion showed an average oxygen saturation of 93% with a lowest of 84%. Fourteen minutes were spent in oxygen saturation of less than 89%. The patient met the criteria for CPAP initiation. It was started at 11 cm of water for the patient's comfort and titrated up to 17 cm of water. At this final pressure, the patient slept for 137 minutes including 39 minutes of REM sleep. The patient had supine sleep as well as REM sleep, [place] [address] SLEEP STUDY REPORT Name: GASTONOVIDIO KNOTT [id number] Admission: 02/03/19 Attend Phys: Jodie Goldsmith Discharge: Date of : 54 Report #: [id number] The patient's AHI was reduced to 0.9 per hour and oxygen saturations remained above 90%. IMPRESSION: 1. Severe sleep apnea-hypopnea syndrome at an AHI of 100 per hour. 2. Nocturnal hypoxia secondary to obstructive sleep apnea, but resolved with CPAP. 3. Severe periodic limb movements, which completely resolved while the patient slept on CPAP and as such does not need to be treated unless the patient has symptoms of restless legs during the day. RECOMMENDATIONS: 1. CPAP at 17 cm of water completely eliminated the patient's sleep apnea and should be used on a nightly basis. 2. Follow up in 4-6 weeks to assess compliance with CPAP and to document clinical improvement. 3. Weight loss is strongly advised. 4. Avoid PROGRAM STRATEGIST depressants. 5. Cautioned regarding driving until symptoms of sleep apnea resolved with the use of CPAP. <ELECTRONICALLY SIGNED> By: Brendon Coto MD 02/12/19 1736 [id number] [id number] Coto MD /nt
== END ==
LOC: M.SLEEPLAB 20:38
DX: G47.33 Obstructive sleep apnea (adult) (pediatric) (principal); G47.34 Idiopathic sleep related nonobstructive alveolar hypoventilation